=== PATIENT | female | born 1970 | race Caucasian/White ===

== ENCOUNTER 2020-10-18 11:12 | Outpatient (CLI) | payer OTHER, SELFPAY ==
[2020-10-18 11:46] LABS: Basophils Percent Auto 0.8 % (0.2-1.2); Eosinophils Absolute Auto 0.1 K/mm3 (0-0.3); Hematocrit 44.3 % (37.0-47.0); Hemoglobin 14.9 g/dL (12.0-15.0); Immature Granulocyte Absolute 0.01 K/mm3 (0.00-0.031); Immature Granulocyte Percent A 0.2 % (0-0.5); Lymphocytes Absolute Auto 1.52 K/mm3 (0.9-3.2); Mean Corpuscular HGB Conc 33.6 g/dl (32-36); Mean Corpuscular Hemoglobin 30.1 pg (26-34); Mean Corpuscular Volume 89.5 fl (80-100); Monocytes Absolute Auto 0.4 K/mm3 (0.1-0.6); Monocytes Percent Auto 7.8 % (2.6-8.5); Neutrophils Absolute Auto 2.9 K/mm3 (1.3-6.7); Neutrophils Percent Auto 58.2 % (45.5-73.1); Platelet Count Result 203 k/mm3 (150-375); Red Blood Count 4.95 M/mm3 (4.2-5.4); Red Cell Distribution Width 12.9 % (11.5-14.5); White Blood Count 4.9 K/mm3 (4.5-10.0)
[2020-10-18 11:55] LABS: Alanine Aminotransferase 29 U/L (4-35); Albumin Level 4.3 g/dL (3.5-5.1); Alkaline Phosphatase 76 U/L (38-126); Anion Gap 7 mmol/L (8-16); Aspartate Amino Transferase 29 U/L (14-36); Bilirubin,Total 0.6 mg/dL (0.2-1.3); Blood Urea Nitrogen 13 mg/dL (7-17); Calcium 9.5 mg/dL (8.4-10.2); Carbon Dioxide 28 mmol/L (22-30); Chloride 105 mmol/L (98-107); Cholesterol 249 mg/dL (0-200); Estimated Glomerular Filt Rate > 60; Glucose 137 mg/dL (65-105); HDL Direct 44 mg/dL; Hemoglobin A1C 7.5 % (<5.7); Potassium 4.7 mmol/L (3.4-5.0); Sodium 140 mmol/L (137-145); Triglycerides 99 mg/dL (<150); Uric Acid 3.5 mg/dL (2.5-7.5)
[2020-10-18 12:07] LABS: LDL Cholesterol Direct 202 mg/dL
[2020-10-18 12:30] LABS: Creatinine Urine 105.8 mg/dL
[2020-10-18 13:08] LABS: MALB Creatinine Ratio < 5.7 mg/g (0-30); Microalbumin Urine Random < 6.0 mg/L (0-16.7)
[2020-10-22 10:27] LABS: Vitamin D 1,25 (OH)2 Total 31 pg/mL (18-72); Vitamin D2 1,25 (OH)2 <8 pg/mL; Vitamin D3 1,25 (OH)2 31 pg/mL
== END 2020-10-18 11:13 | disposition home or self-care (01) ==
LOC: ANHLAB 11:14
PROVIDERS: PCP Family Medicine; Visit Provider Family Medicine
DX: E11.9 Type 2 diabetes mellitus without complications (principal); E79.0 Hyperuricemia without signs of inflammatory arthritis and tophaceous disease; E78.2 Mixed hyperlipidemia; E55.9 Vitamin D deficiency, unspecified; I10 Essential (primary) hypertension
CPT/HCPCS: 36415; 80053; 80061; 82043; 82652; 83036; 84443; 84550; 85025

== ENCOUNTER 2021-04-23 08:16 | Outpatient (CLI) | payer OTHER, SELFPAY ==
[2021-04-23 08:50] LABS: Basophils Absolute Auto 0.1 K/mm3 (0.0-0.1); Basophils Percent Auto 0.9 % (0.2-1.2); Eosinophils Absolute Auto 0.1 K/mm3 (0-0.3); Eosinophils Percent Auto 2.2 % (0-4.4); Hematocrit 42.6 % (37.0-47.0); Hemoglobin 13.9 g/dL (12.0-15.0); Immature Granulocyte Absolute 0.02 K/mm3 (0.00-0.031); Immature Granulocyte Percent A 0.3 % (0-0.5); Lymphocytes Absolute Auto 2.16 K/mm3 (0.9-3.2); Mean Corpuscular HGB Conc 32.6 g/dl (32-36); Mean Corpuscular Hemoglobin 29.3 pg (26-34); Mean Corpuscular Volume 89.9 fl (80-100); Mean Platelet Volume 10.4 fl (7.4-10.4); Monocytes Absolute Auto 0.5 K/mm3 (0.1-0.6); Monocytes Percent Auto 8.6 % (2.6-8.5); Platelet Count Result 193 k/mm3 (150-375); Red Blood Count 4.74 M/mm3 (4.2-5.4); Red Cell Distribution Width 13.2 % (11.5-14.5); White Blood Count 5.8 K/mm3 (4.5-10.0)
[2021-04-23 08:58] LABS: Alanine Aminotransferase 23 U/L (4-35); Albumin Level 4.3 g/dL (3.5-5.1); Alkaline Phosphatase 71 U/L (38-126); Anion Gap 9 mmol/L (8-16); Aspartate Amino Transferase 23 U/L (14-36); Bilirubin,Total 0.5 mg/dL (0.2-1.3); Blood Urea Nitrogen 13 mg/dL (7-17); Calcium 9.3 mg/dL (8.4-10.2); Carbon Dioxide 24 mmol/L (22-30); Chloride 107 mmol/L (98-107); Cholesterol 235 mg/dL (0-200); Estimated Glomerular Filt Rate > 60; Glucose 146 mg/dL (65-105); HDL Direct 46 mg/dL; Potassium 3.9 mmol/L (3.4-5.0); Sodium 140 mmol/L (137-145); Triglycerides 106 mg/dL (<150)
[2021-04-23 09:03] LABS: Hemoglobin A1C 7.5 % (<5.7)
[2021-04-23 09:09] LABS: LDL Cholesterol Direct 148 mg/dL
[2021-04-23 10:06] LABS: Creatinine Urine 48.2 mg/dL
[2021-04-23 10:59] LABS: MALB Creatinine Ratio < 12.4 mg/g (0-30); Microalbumin Urine Random < 6.0 mg/L (0-16.7)
== END 2021-04-23 08:17 | disposition home or self-care (01) ==
LOC: ANHLAB 08:19
PROVIDERS: PCP Family Medicine; Visit Provider Family Medicine
DX: E11.9 Type 2 diabetes mellitus without complications (principal); I10 Essential (primary) hypertension; E78.2 Mixed hyperlipidemia; E03.9 Hypothyroidism, unspecified
CPT/HCPCS: 36415; 80053; 80061; 82043; 83036; 84443; 85025

== ENCOUNTER 2021-05-03 09:33 | Outpatient (CLI) | payer OTHER, SELFPAY ==
--- NOTE | ~2021-05-03 | MM_ITS ---
EXAMINATION: MM screening [facility] BI w horacio HISTORY: Screening mammogram TECHNIQUE: Craniocaudal and mediolateral oblique 3-D tomosynthesis images were obtained and synthetic 2-D images were generated. CAD analysis was submitted and interpreted. COMPARISON: 10/24/2017, 10/02/2017, 06/12/2011 BREAST PARENCHYMAL COMPOSITION: There are scattered areas of fibroglandular density. FINDINGS: RIGHT BREAST: There is no evidence of suspicious mass, calcification, or architectural distortion to suggest malignancy. There has been no significant interval change. LEFT BREAST: There is a possible mass in the middle/posterior third of the outer breast 9 cm from the nipple. IMPRESSION: 1. Possible left breast mass. 2. Additional mammographic views and possible breast ultrasound are recommended. BI-RADS Category 0: Incomplete: Needs additional imaging evaluation. Reviewed, dictated and finalized at location A. IMPRESSION: 1. Possible left breast mass. 2. Additional mammographic views and possible breast ultrasound are recommended . BI-RADS Category 0: Incomplete: Needs additional imaging evaluation.
== END 2021-05-03 09:34 | disposition home or self-care (01) ==
PROVIDERS: PCP Family Medicine; Visit Provider Physician Assistant
DX: Z12.31 Encounter for screening mammogram for malignant neoplasm of breast (principal); R92.8 Other abnormal and inconclusive findings on diagnostic imaging of breast
CPT/HCPCS: 77063; 77067

== ENCOUNTER 2021-08-17 11:21 | Outpatient (CLI) | payer OTHER, SELFPAY ==
--- NOTE | ~2021-08-17 | MMUS_ITS ---
EXAMINATION: MM diagnostic lamin LT w horacio, US breast LT limited HISTORY: Possible left breast mass in middle/posterior third of outer breast 9 cm from nipple reporte d on 05/03/2021 screening mammogram examinations TECHNIQUE: Full field and spot ML, MLO and craniocaudal 3-D tomosynthesis images of left breast were performed and synthetic 2-D images were generated. CAD analysis was submitted and interpreted. Upper outer and lower-outer quadrant left breast ultrasound was performed. COMPARISON: 05/03/2021ilateral digital screening mammogram BREAST PARENCHYMAL COMPOSITION: There are scattered areas of fibroglandular density. MAMMOGRAM FINDINGS: No reproducible mass or architectural distortion, malignant calcification, skin t hickening or retraction is detected. ULTRASOUND FINDINGS: No solid mass, cyst or suspicious shadowing of the lateral half of the left twila st is detected. IMPRESSION: 1. No mammographic evidence of malignancy 2. Routine mammographic screening is recommended BI-RADS Category 1: Negative Reviewed, dictated and finalized at location A. IMPRESSION: 1. No mammographic evidence of malignancy 2. Routine mammographic screening is recommended BI-RADS Category 1: Negative
== END 2021-08-17 11:22 | disposition home or self-care (01) ==
PROVIDERS: PCP Family Medicine; Visit Provider Family Medicine
DX: N63.0 Unspecified lump in unspecified breast (principal)
CPT/HCPCS: 76642; 77061; 77065; G0279

== ENCOUNTER 2022-12-17 16:22 | Outpatient (CLI) | payer OTHER, SELFPAY ==
--- NOTE | ~2022-12-17 | XR_ITS ---
XR knee LT 3V 12/17/2022 16:46 Indication: Left knee pain. Multiple falls. Procedure: 3 views left knee Comparison: No prior studies for comparison. Findings: There is moderate tricompartment osteoarthritis of the left knee. No fracture, subluxation or dislocation. No significant joint effusion. No foreign bodies. Impression: 1: Moderate tricompartment osteoarthritis. Reviewed, dictated and finalized at location L. F TRAINER Impression: 1: Moderate tricompartment osteoarthritis.
== END 2022-12-17 16:23 | disposition home or self-care (01) ==
LOC: ANHIMG 16:24
PROVIDERS: PCP Family Medicine; Visit Provider Family Medicine
DX: M25.569 Pain in unspecified knee (principal); M17.12 Unilateral primary osteoarthritis, left knee
CPT/HCPCS: 73562

== ENCOUNTER 2023-02-11 13:52 | Outpatient (RCR) | payer OTHER, SELFPAY ==
--- NOTE | 2023-02-11 14:54 | PTOPEVAL1 ---
Assessment and note entered by Marisela Valdivia, PT Evaluation Information Assessment Status Evaluation Diagnosis L knee OA Onset 02/05/23 Subjective Information Nubia Ramirez reports she will have a left total knee replacement in the near future due to bone on bone deformity and osteoarthritis. Her doctor sent her to PT to have rehabilitation prior to her surgery. She has pain with walking and is limited to walking a 1/2 block due to pain. She also is unable to go up and down stairs unless she pulls with her hands and takes one step at a time . She has pain on the back of the knee along with swelling that limits her ability to bend her knee and her ability to sleep. She notes increased pain and swelling after work in which she has to stand for several hours. Reported Pain Level Pain Score 5: Self Report Assessment PT Clinical Summary Nubia Ramirez presents with left knee pain due to osteoarthritis. 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 She is reporting left knee pain and swelling that is worse with prolonged standing. She is having difficulty walking more than 1/2 block, sleeping, and she is unable to go up and down stairs. She objectively demonstrates moderate deficits in left knee AROM that is impairing her gait, decreased left knee and hip strength with pain elicited during testing, tenderness on the left medial and posterior knee joint line, impaired gait, and impaired balance. She will benefit from skilled PT for left knee ROM, left LE strengthening, balance training, and gait training prior to a left total knee arthroplasty. Plan of Care Interventions Gait Training,Hot Pack/Cold Pack,Intermittent Compression,Manual Therapy,Neuro Re-education, Patient/Caregiver Educati,Therapeutic Activities, Therapeutic Exercise PT Services Indicated Yes Treatment Frequency and 1 time a week for 4 visits Duration These treatments will address the objective and functional deficits as defined above. The patient will be advanced safely and appropriately in order for the patient to progress towards his/her prior level of function. Additional exercises will be introduced and as well as a comprehensive home exercise program upon discharge, if needed, ?to ensure carryover of functional gains achieved in the clinic. This treatment plan has been reviewed and agreement upon by the patient.
--- NOTE | 2023-03-03 17:18 | PTOPDC ---
Assessment and note entered by Yamini Rojas DPT Evaluation Information Assessment Status Evaluation Diagnosis L knee OA Onset 02/05/23 Subjective Information Patient reports she has noticed some improvements in her walking but continues to report that she is limited by pain. She has increased pain with stair navigation. She reports she is calling the MD tomorrow to follow up regarding surgery. Reported Pain Level Pain Score 8: Self Report Assessment PT Clinical Summary Patient has been seen for 4 visits for pre op L knee pain. She made small improvements in L knee ROM and strength but continues to demonstrate deficits. She reports improvement in ambulation but continues to have difficulty with stair navigation. She is independent with HEP and will be discharged at this time. Plan of Care PT Services Indicated No
== END 2023-03-03 17:25 | disposition home or self-care (01) ==
LOC: CHSPT 13:52
PROVIDERS: Visit Provider Orthopaedic Surgery
DX: M17.12 Unilateral primary osteoarthritis, left knee (principal)
CPT/HCPCS: 97016; 97110; 97161; 97530

== ENCOUNTER 2023-07-23 09:59 | Outpatient (CLI) | payer OTHER, SELFPAY ==
[2023-07-23 10:28] LABS: Basophils Absolute Auto 0.1 K/mm3 (0.0-0.1); Eosinophils Absolute Auto 0.2 K/mm3 (0-0.3); Hematocrit 42.9 % (37.0-47.0); Hemoglobin 14.5 g/dL (12.0-15.0); Immature Granulocyte Absolute 0.01 K/mm3 (0.00-0.031); Immature Granulocyte Percent A 0.2 % (0-0.5); Lymphocytes Absolute Auto 1.58 K/mm3 (0.9-3.2); Lymphocytes Percent Auto 31.9 % (18.3-44.2); Mean Corpuscular HGB Conc 33.8 g/dl (32-36); Mean Corpuscular Hemoglobin 30.6 pg (26-34); Mean Corpuscular Volume 90.5 fl (80-100); Mean Platelet Volume 10.4 fl (7.4-10.4); Monocytes Absolute Auto 0.5 K/mm3 (0.1-0.6); Monocytes Percent Auto 9.9 % (2.6-8.5); Neutrophils Absolute Auto 2.6 K/mm3 (1.3-6.7); Platelet Count Result 190 k/mm3 (150-375); Red Blood Count 4.74 M/mm3 (4.2-5.4); Red Cell Distribution Width 12.8 % (11.5-14.5)
[2023-07-23 10:42] LABS: Alanine Aminotransferase 37 U/L (6-35); Albumin Level 4.5 g/dL (3.5-5.1); Alkaline Phosphatase 71 U/L (38-126); Anion Gap 6 mmol/L (8-16); Aspartate Amino Transferase 29 U/L (14-36); Bilirubin,Total 0.8 mg/dL (0.2-1.3); Blood Urea Nitrogen 10 mg/dL (7-17); Calcium 8.8 mg/dL (8.4-10.2); Carbon Dioxide 27 mmol/L (22-30); Chloride 106 mmol/L (98-107); Cholesterol 283 mg/dL (0-200); Estimated Glomerular Filt Rate > 60; Glucose 160 mg/dL (65-110); HDL Direct 37 mg/dL; Potassium 3.8 mmol/L (3.4-5.0); Sodium 139 mmol/L (137-145); Triglycerides 116 mg/dL (<150)
[2023-07-23 10:54] LABS: LDL Cholesterol Direct 196 mg/dL
== END 2023-07-23 10:00 | disposition home or self-care (01) ==
PROVIDERS: PCP Family Medicine; Visit Provider Physician Assistant
DX: E11.9 Type 2 diabetes mellitus without complications (principal); I10 Essential (primary) hypertension; E78.2 Mixed hyperlipidemia
CPT/HCPCS: 36415; 80053; 80061; 83036; 85025

== ENCOUNTER 2023-11-21 10:58 | Outpatient (CLI) | payer OTHER, SELFPAY ==
[2023-11-21 11:45] LABS: Alanine Aminotransferase 27 U/L (6-35); Albumin Level 4.4 g/dL (3.5-5.1); Alkaline Phosphatase 68 U/L (38-126); Anion Gap 11 mmol/L (8-16); Aspartate Amino Transferase 27 U/L (14-36); Bilirubin,Total 0.6 mg/dL (0.2-1.3); Blood Urea Nitrogen 21 mg/dL (7-17); Calcium 9.2 mg/dL (8.4-10.2); Carbon Dioxide 24 mmol/L (22-30); Chloride 104 mmol/L (98-107); Cholesterol 250 mg/dL (0-200); Estimated Glomerular Filt Rate > 60; Glucose 133 mg/dL (65-110); HDL Direct 42 mg/dL; Potassium 4.3 mmol/L (3.4-5.0); Sodium 139 mmol/L (137-145); Triglycerides 81 mg/dL (<150)
[2023-11-21 11:56] LABS: LDL Cholesterol Direct 185 mg/dL
== END 2023-11-21 10:59 | disposition home or self-care (01) ==
LOC: ANHLAB 10:59
PROVIDERS: PCP Family Medicine; Visit Provider Physician Assistant
DX: E11.9 Type 2 diabetes mellitus without complications (principal); E78.2 Mixed hyperlipidemia; I10 Essential (primary) hypertension
CPT/HCPCS: 36415; 80053; 80061; 83036

== ENCOUNTER 2023-12-25 00:13 | Day surgery (SDC) | payer OTHER, SELFPAY ==
[2023-12-02 12:27] VITALS: BMI 32.7
--- NOTE | 2023-12-23 08:15 | SUR.PREOP ---
Patient called regarding upcoming procedure. Voicemail left regarding appointment times.
--- NOTE | 2023-12-24 13:53 | PM.HPGS ---
History of Present Illness History of Present Illness Consent: Risks, benefits, and alternatives have been discussed and questions answered. Patient agrees to proceed with procedure. Chief complaint: neoplasm screening Narrative: Nubia Ramirez is a 53 year old female Referred for colon cancer screening. Review of Systems Review of Systems: All systems reviewed & are unremarkable except as noted in HPI and below PMFSH Past Medical History Medical History Benign essential HTN Depression Diabetes mellitus Mixed hyperlipidemia Surgical History Surgical History History of partial hysterectomy Family History Family History Father Hypertension Family history of elevated blood lipids Family history of diabetes mellitus in first degree relative Mother Acute myocardial infarction Other Diabetes mellitus Social History Social History Social History: Smoking status: Never smoker Second hand tobacco smoke exposure: No Alcohol intake: never Substance use: never Substance use type: does not use Lack of Transportation: No Lack of Food: Never True Current Housing: I Have Housing Concerned About Future Housing: No Difficulty Paying Gas/Electric Bills: No Difficulty Paying for Meds: No Currently Unemployed: No Education: Trade/Vocational Certificate Difficulty w/ Childcare or Family Care: No Living arrangements: with family Occupation/Education: occupation 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 [employer] Gender identity (if verbalized by the patient): Female Sexual Orientation (if Verbalized by the Patient): Straight or Heterosexual Spiritual care concerns: No Meds Home Medications and Allergies Home Medications Medication Instructions Recorded Confirmed Type fluoxetine 20 mg capsule 20 mg PO DAILY #90 caps 11/04/23 12/02/23 Rx rosuvastatin 20 mg tablet 20 mg PO DAILY #90 tabs 11/04/23 12/02/23 Rx semaglutide 0.25 mg or 0.5 mg (2 0.25 mg subcut WEEKLY 11/24/23 12/25/23 History mg/3 mL) subcutaneous pen injector (Ozempic) Allergies Allergy/AdvReac Type Severity Reaction Status Date / Time nickel Allergy Severe ACID Verified 12/25/23 07:00 REACTION TO METAL codeine Allergy Mild hives Verified 12/25/23 07:00 metformin Allergy Unknown Palpitation Verified 12/25/23 07:00 s dulaglutide [From [facility]] AdvReac Intermediate Vomiting Verified 12/25/23 07:00 Exam Const: General: alert Orientation/consciousness: patient oriented x3 Resp: Auscultation: clear to auscultation bilaterally Cardio: Rhythm: regular rhythm GI: GI Palp: Yes Soft to palpation and No Tenderness to palpation present (GI) Neuro: General: patient oriented x3 Assessment and Plan Assessment and plan (1) Colon cancer screening: Code(s): Z12.11 - Encounter for screening for malignant neoplasm of colon Status: Acute Assessment and Plan: Colonoscopy with possible biopsy or polypectomy or cautery or injection of substances.
[2023-12-25 07:02] VITALS: BP 128/87; PULSE 91; RESP 16; TEMP 36.2; O2SAT 100
[2023-12-25] MEDS: LACTATED RINGERS 1,000 ML 150 ML IV CONT (07:20)
[2023-12-25 07:21] LABS: Glucose Point of Care 121 mg/dl (65-105)
--- NOTE | 2023-12-25 07:56 | WPDANESEPPF ---
Anes - Initial Pre Proc Eval Procedure: Operation Date: 12/25/23 08:30 Proposed Procedures p Screening Colonoscopy - Issa Arana MD Date/Time: 12/25/23 07:56 Surgeon: Issa Arana MD Pre Op Diagnosis: neoplasm screening Patient Data Age: 53 Gender: F Height: 1.52 m Weight: 72.6 kg Last Vital Signs Temp 36.2 C L 12/25/23 07:02 Pulse 91 12/25/23 07:02 Resp 16 12/25/23 07:02 BP 128/87 12/25/23 07:02 Pulse Ox 100 12/25/23 07:02 O2 Del Method Room Air 12/25/23 07:02 Allergies Allergy/AdvReac Type Severity Reaction Status Date / Time nickel Allergy Severe ACID Verified 12/25/23 07:00 REACTION TO METAL codeine Allergy Mild hives Verified 12/25/23 07:00 metformin Allergy Unknown Palpitation Verified 12/25/23 07:00 s dulaglutide [From [facility]] AdvReac Intermediate Vomiting Verified 12/25/23 07:00 Home Medications Medication Instructions Recorded Confirmed Type fluoxetine 20 mg capsule 20 mg PO DAILY #90 caps 11/04/23 12/02/23 Rx rosuvastatin 20 mg tablet 20 mg PO DAILY #90 tabs 11/04/23 12/02/23 Rx semaglutide 0.25 mg or 0.5 mg (2 0.25 mg subcut WEEKLY 11/24/23 12/25/23 History mg/3 mL) subcutaneous pen injector (Ozempic) Laboratory Tests 12/25/23 07:15 POC Capillary Glucose 121 H mg/dl (65-105) Patient hx anesthesia problems: none Family hx anesthesia problems: none Results Review: All pre-operative results and documents have been reviewed as part of the pre-operative evaluation. [facility]LY [facility], [facility] Past Medical History Medical History Benign essential HTN Depression Diabetes mellitus Mixed hyperlipidemia Surgical History Surgical History History of partial hysterectomy Family History Family History Father Hypertension Family history of elevated blood lipids Family history of diabetes mellitus in first degree relative Mother Acute myocardial infarction Other Diabetes mellitus Social History Social History Social History: Smoking status: Never smoker Second hand tobacco smoke exposure: No Alcohol intake: never Substance use: never Substance use type: does not use Lack of Transportation: No Lack of Food: Never True Current Housing: I Have Housing Concerned About Future Housing: No Difficulty Paying Gas/Electric Bills: No Difficulty Paying for Meds: No Currently Unemployed: No Education: Trade/Vocational Certificate Difficulty w/ Childcare or Family Care: No Living arrangements: with family Occupation/Education: occupation 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 Gender identity (if verbalized by the patient): Female Sexual Orientation (if Verbalized by the Patient): Straight or Heterosexual Spiritual care concerns: No Anes - Eval Final PreProcedure Day of Procedure 12/25/23 07:56 Patient weight: obese Heart: regular rate and rhythm Lungs: clear to auscultation Airway: Mallampati scale class II Neurological: alert and oriented Last oral intake: >/= 8 hours ASA classification: III Emergent: no Anesthetic plan: proceed Anesthesia type and monitoring: general GIVS and standard monitoring Results Review: All pre-operative results and documents have been reviewed as part of the pre-operative evaluation. Informed Consent: The patient's anesthetic plan and its attendant risks and benefits were discussed with the patient/family/POA. Questions were solicited and answers provided to the satisfaction of the patient/family/POA.
[2023-12-25 09:12] VITALS: BP 96/60; PULSE 78; RESP 15; O2SAT 96
[2023-12-25 09:22] VITALS: BP 112/80; PULSE 73; RESP 18; O2SAT 100
[2023-12-25 09:32] VITALS: BP 109/79; PULSE 74; RESP 16; O2SAT 100
== END 2023-12-25 09:34 | disposition home or self-care (01) ==
PROVIDERS: PCP Family Medicine; Visit Provider Internal Medicine Gastroenterology
PROC: 0DJD8ZZ Inspection of Lower Intestinal Tract, Via Natural or Artificial Opening Endoscopic (ICD-10-PCS; CPT 45378; principal; 2023-12-25 08:30)
DX: Z12.11 Encounter for screening for malignant neoplasm of colon (principal); I10 Essential (primary) hypertension; E11.9 Type 2 diabetes mellitus without complications; E78.2 Mixed hyperlipidemia
CPT/HCPCS: 45378; 82948; J2704; J7120

== ENCOUNTER 2024-03-30 10:58 | Outpatient (CLI) | payer OTHER, SELFPAY ==
--- NOTE | ~2024-03-30 | CT_ITS ---
EXAMINATION: CT LE LT wo con DATE: 03/30/2024 11:39 INDICATION: Unilateral primary osteoarthritis, left knee. TECHNIQUE: Computed tomography (CT) of the left lower limb was performed without intravenous contrast . Automated exposure control and iterative reconstruction technique were employed. The dose-length pr oduct was 1839.64 mGy-cm. COMPARISON: Left knee radiographs 03/10/2024 FINDINGS: There is mild left hip osteoarthritis. Left knee demonstrates severe osteoarthritis of the medial and patellofemoral compartments and mild osteoarthritis of the lateral compartment. There is a small knee joint effusion. There is a small Olguin's cyst. Varicose veins are noted. IMPRESSION: 1. Severe left knee osteoarthritis. 2. Small left knee joint effusion. 3. Small left-sided Olguin's cyst. 4. Mild left hip osteoarthritis. Reviewed, dictated and finalized at location A.
--- NOTE | 2024-03-30 11:48 | ECG_ITS ---
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 Measurements Intervals [place] Rate: 55 P: 18 WV: 165 QRS: -10 QRSD: 104 T: -1 QT: 423 QTc: 405 Interpretive Statements SINUS BRADYCARDIA LOW QRS VOLTAGE IN PRECORDIAL LEADS [QRS DEFLECTION < 1.0 mV IN CHEST LEADS] POSSIBLE ANTERIOR MYOCARDIAL INFARCTION , PROBABLY OLD [30 ms Q WAVE IN V3/V4, OR R < 0.2 mV IN V4] No previous ECG available for comparison Electronically Signed On 03-30-2024 14:21:46 CDT by Camryn Dawson M.D.
[2024-03-30 12:47] LABS: Hematocrit 44.3 % (37.0-47.0); Hemoglobin 14.4 g/dL (12.0-15.0)
[2024-03-30 12:59] LABS: Albumin Level 4.4 g/dL (3.5-5.1); Estimated Glomerular Filt Rate > 60; Glucose 150 mg/dL (65-110)
[2024-03-30 13:12] LABS: Hemoglobin A1C 7.4 % (<5.7)
== END 2024-03-30 10:59 | disposition home or self-care (01) ==
PROVIDERS: PCP Family Medicine; Visit Provider Orthopaedic Surgery
DX: Z01.818 Encounter for other preprocedural examination (principal); M17.12 Unilateral primary osteoarthritis, left knee; E11.9 Type 2 diabetes mellitus without complications; I10 Essential (primary) hypertension
CPT/HCPCS: 36415; 73700; 82040; 82565; 82947; 83036; 85014; 85018; 93005

== ENCOUNTER 2024-05-12 09:42 | Outpatient (CLI) | payer OTHER, SELFPAY ==
[2024-05-12 11:11] LABS: Basophils Absolute Auto 0.1 K/mm3 (0.0-0.1); Basophils Percent Auto 1.2 % (0.2-1.2); Eosinophils Absolute Auto 0.7 K/mm3 (0-0.3); Eosinophils Percent Auto 10.4 % (0-4.4); Hematocrit 43.7 % (37.0-47.0); Hemoglobin 14.3 g/dL (12.0-15.0); Immature Granulocyte Absolute 0.02 K/mm3 (0.00-0.031); Immature Granulocyte Percent A 0.3 % (0-0.5); Lymphocytes Absolute Auto 2.08 K/mm3 (0.9-3.2); Lymphocytes Percent Auto 31.5 % (18.3-44.2); Mean Corpuscular HGB Conc 32.7 g/dl (32-36); Mean Corpuscular Hemoglobin 29.8 pg (26-34); Mean Platelet Volume 10.4 fl (7.4-10.4); Monocytes Absolute Auto 0.5 K/mm3 (0.1-0.6); Monocytes Percent Auto 7.4 % (2.6-8.5); Neutrophils Absolute Auto 3.3 K/mm3 (1.3-6.7); Neutrophils Percent Auto 49.2 % (45.5-73.1); Platelet Count Result 205 k/mm3 (150-375); Red Cell Distribution Width 12.5 % (11.5-14.5); White Blood Count 6.6 K/mm3 (4.5-10.0)
[2024-05-12 11:21] LABS: Anion Gap 11 mmol/L (4-12); Blood Urea Nitrogen 12 mg/dL (7-17); Carbon Dioxide 25 mmol/L (22-30); Chloride 103 mmol/L (98-107); Estimated Glomerular Filt Rate > 60; Glucose 146 mg/dL (65-110); Potassium 4.1 mmol/L (3.4-5.0); Sodium 139 mmol/L (137-145); Urine Cotinine NEGATIVE
[2024-05-12 12:23] LABS: MRSA (PCR) NOT DETECTED (NOT DETECTE)
== END 2024-05-12 09:43 | disposition home or self-care (01) ==
LOC: ANHSURGERY 09:47
PROVIDERS: Anesthesiology; PCP Family Medicine; Visit Provider Orthopaedic Surgery
DX: M17.12 Unilateral primary osteoarthritis, left knee (principal); E11.9 Type 2 diabetes mellitus without complications
CPT/HCPCS: 36415; 80048; 80307; 85025; 87641

== ENCOUNTER 2024-05-27 01:22 | Day surgery (SDC) | payer OTHER, SELFPAY ==
[2024-05-12 09:47] VITALS: BP 126/81; PULSE 68; RESP 16; TEMP 36.6; O2SAT 100; BMI 33.7
--- NOTE | 2024-05-12 09:48 | PC.NURSE ---
Report to the Outpatient Waiting Room, entrance under the green pavilion located off [facility], at time ___08:00AM____ on date ___05/27/24____. Planned Procedure Time: __10:00AM . Time changes happen often and if your time is changed the preop area will call you the afternoon before. - You and your visitor will be asked to self-screen and do not enter if you have any COVID symptoms. - A mask is optional within the hospital at this time. Patients may have clear liquids (water, carbonated beverages, clear teas, apple juice) until 3 hours prior to surgery with a maximum of 20 ounces. - No food from midnight until time of surgery Take the following medications with a SIP of water the morning of surgery: FLUOXETINE DO NOT STOP ANY OF YOUR OTHER PRESCRIPTION MEDICATIONS PRIOR TO SURGERY ?EXCEPT THE FOLLOWING Medications to discontinue per physician HOLD ASA 7 DAYS PRIOR TO SURGERY Date to take last dose___05/19/24 Please no make-up, nail belarusian, hairspray, perfume, deodorant, or body powder the day of surgery. No jewelry (including any body piercings) or valuables the day of surgery, leave them at home. Please take a shower or bath the night before, or the morning of, surgery with an antibacterial soap. Wear comfortable, loose fitting clothing. Children are encouraged to wear pajamas. - Jewelry must be removed prior to entering the operating room. Rings and piercings that are not removed may be cut off. - The hospital will not accept responsibility for valuables. - Please leave all valuables, including medications, at home the day of surgery. If you are going home after surgery, a licensed mule driver must drive you home. - NO public transportation without another adult if you receive anesthesia. - We recommend that an adult stay with you for 24 hours following discharge. - We also recommend that you do not drive, make important decision, drink alcoholic beverages, or take any drugs that were not prescribed by your health care provider for at least 24 hours after your discharge time. Follow any additional instructions given to you from your surgeon. If you or anyone in your household have experienced Covid symptoms in the past week, please notify your surgeon or the nurse liaison at the phone number below for possible testing. Telephone instructions given to ___PATIENT and asked if any additional questions and then verbalized understanding. Patient advised to call surgeon office or pre surgery nurse liaison [phone] if any additional questions.
[2024-05-27] VITALS (8 sets, daily range): BP systolic 126–146; BP diastolic 68–89; PULSE 89–100; RESP 12–16; TEMP 36.4; O2SAT 92–100
--- NOTE | ~2024-05-27 | XR_ITS ---
[id number] Ordering provider: Otoniel Faye MD History: . LEFT CUSTOM TKA, POST-OP . Comparison: None. FINDINGS: BONES: No acute fracture or dislocation. JOINT SPACES: Total knee arthroplasty. SOFT TISSUES: Postoperative changes. IMPRESSION: No acute osseous abnormality left knee. Total knee arthroplasty. Reviewed, dictated and finalized at location A.
[2024-05-27 08:40] LABS: Glucose Point of Care 160 mg/dl (65-105)
[2024-05-27] MEDS: ACETAMINOPHEN 500 MG TABLET 1000 MG PO (09:00)
[2024-05-27] MEDS: TRANEXAMIC ACID 1,000MG/ISO100 1,000 MG/100 ML BAG 200 MG IVPB (09:00)
[2024-05-27] MEDS: LACTATED RINGERS 1,000 ML 30 ML IV CONT ×2 (09:00→12:53)
--- NOTE | 2024-05-27 09:05 | WPDANESEPPF ---
Anes - Initial Pre Proc Eval Procedure: Operation Date: 05/27/24 10:00 Proposed Procedures p Left Custom Total Knee Arthroplasty - Otoniel Faye MD Date/Time: 05/27/24 09:05 Surgeon: Otoniel Faye MD Pre Op Diagnosis: primary oa left knee Patient Data Age: 53 Gender: F Height: 1.5 m Weight: 75.9 kg Last Vital Signs Temp 36.6 C 05/12/24 09:47 Pulse 68 05/12/24 09:47 Resp 16 05/12/24 09:47 BP 126/81 05/12/24 09:47 Pulse Ox 100 05/12/24 09:47 O2 Del Method Room Air 05/12/24 09:47 Allergies Allergy/AdvReac Type Severity Reaction Status Date / Time nickel Allergy Severe ACID Verified 05/12/24 09:53 REACTION TO METAL , rash codeine Allergy Mild hives Verified 05/12/24 09:53 dulaglutide [From [facility]] AdvReac Intermediate Vomiting Verified 05/12/24 09:53 metformin AdvReac Unknown Palpitation Verified 05/12/24 09:53 s Home Medications Medication Instructions Recorded Confirmed Type rosuvastatin 20 mg tablet 20 mg PO DAILY #90 tabs 11/04/23 05/12/24 Rx fluoxetine 20 mg capsule 20 mg PO DAILY #90 caps 04/09/24 05/12/24 Rx semaglutide 0.25 mg or 0.5 mg (2 0.25 mg (0.368 mL) subcut WEEKLY 04/09/24 05/12/24 Rx mg/3 mL) subcutaneous pen injector #3 mL (Ozempic) aspirin 81 mg tablet,delayed 81 mg PO DAILY 05/12/24 05/12/24 History release cephalexin 500 mg capsule 500 mg PO QID 05/12/24 05/12/24 History gabapentin 100 mg capsule 100 mg PO HS 05/12/24 05/12/24 History (Neurontin) aspirin 81 mg tablet,delayed 81 mg PO BID 14 days #28 tabs 05/27/24 Rx release cephalexin 500 mg capsule 500 mg PO BID 3 days #5 caps 05/27/24 Rx meloxicam 15 mg tablet 15 mg PO DAILY #30 tabs 05/27/24 Rx oxycodone-acetaminophen 5 mg-325 1 - 2 tablet PO Q4-6H PRN pain #30 05/27/24 Rx mg tablet tabs prednisone 5 mg tablet 5 mg PO DAILY 3 weeks #21 tabs 05/27/24 Rx Laboratory Tests 05/27/24 08:38 POC Capillary Glucose 160 H mg/dl (65-105) Patient hx anesthesia problems: none Family hx anesthesia problems: none Results Review: All pre-operative results and documents have been reviewed as part of the pre-operative evaluation. [facility] Past Medical History Medical History Benign essential HTN Depression Diabetes mellitus Mixed hyperlipidemia Surgical History Surgical History History of partial hysterectomy Family History Family History Father Hypertension Family history of elevated blood lipids Family history of diabetes mellitus in first degree relative Mother Acute myocardial infarction Other Diabetes mellitus Social History Social History Social History: Smoking status: Never smoker Second hand tobacco smoke exposure: No Alcohol intake: current Substance use: never Substance use type: does not use Lack of Transportation: No Lack of Food: Never True Current Housing: I Have Housing Concerned About Future Housing: No Difficulty Paying Gas/Electric Bills: No Difficulty Paying for Meds: No Currently Unemployed: No Education: Trade/Vocational Certificate Difficulty w/ Childcare or Family Care: No Living arrangements: with family Occupation/Education: occupation 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
--- NOTE | 2024-05-27 09:38 | WPDANESPNB ---
Anes - Peripheral Nerve Block Date/Time: 05/27/24 09:38 I have discussed with the patient/family/POA the placement of a peripheral nerve block for post-operative pain management, including associated risks, benefits, complications, and side effects. Alternative methods of post-operative analgesia were detailed. Questions were solicited and answers provided to the satisfaction of the patient/family/POA. Time-Out: A pre-procedural Time-Out was completed immediately before starting the procedure and confirmed: Patient Identification, Site, Procedure, Patient Position and the Availability of Requisite Equipment. Clinical Indications: Acute post-operative pain management requested by the operative surgeon. Nerve Block Insertion Note Anes-nerve block: adductor canal left Patient position: supine Skin prep: chlorhexidine Needle: 22 gauge, stimulating, insulated echogenic needle. Needle length: 80 mm Technique: ultrasound Injectate: bupivacaine 0.5% with epi 5 mcg/ml (30cc - no epi) Observations: tolerated well Complications: none Procedure start time:: 1006 Procedure end time:: 100
--- NOTE | 2024-05-27 10:11 | WPDHPUPDATE1 ---
History and Physical Update Update Date/Time: 05/27/24 10:11 History and Physical has been reviewed, including an updated exam of the patient. There are NO changes in the patient's condition. Risks, benefits, and alternatives have been discussed and questions answered. Patient agrees to proceed with procedure.
[2024-05-27] MEDS: ceFAZolin 2 GM/D5W 50 ML 2 GM/50 ML BAG IVPB (10:25)
[2024-05-27] MEDS: SODIUM CHLORIDE 0.9% IV 38.7 ML, ROPivacaine HCL 1% 200 MG, KETOROLAC INJ (*BKC) 15 MG,... INFILTRATE (10:55)
[2024-05-27] MEDS: fentaNYL CITRATE INJ (*CRX) 100 MCG/2 ML VIAL 25 MCG IV PUSH ×6 (13:00→13:25)
--- NOTE | 2024-05-27 13:39 | P.OP_ITS ---
Procedure Note - Detailed Date of Procedure 05/27/24 Pre-op Diagnosis Severe left knee osteoarthritis. Post-op Diagnosis Same Procedure Performed Total knee arthroplasty, left. Surgeon Otoniel Faye MD [employer] Steward/Stewardess Sharyn Khanna PA-C Anesthesia General and Regional (Subsartorial block.) Findings Custom implants with optimal fit. Significant patellofemoral dysplasia. Small bony stature. Good bone quality. Slight PCL release performed. Description of Procedure Preoperative antibiotics were given. The limb was prepped and draped in the usual sterile fashion with a well-padded tourniquet high on the thigh. The limb was exsanguinated and the tourniquet inflated to 300 mmHg, during exposure and cementation. A longitudinal incision was created just medial to the patella. A trivector approach to the knee was performed. Arthrotomy was taken down through the joint capsule. No significant releases were initially taken. The femur was exposed and the F1 jig was applied. The coring tool was used to remove the cartilage for the F2 jig to sit flush with the bone. The jig was pinned and the distal cut carefully taken. Caliper measurements confirmed appropriate bony resections according to the preoperative templated plan. The F4 cutting jig for the femur was applied, at the standard rotation. The AP and anterior chamfer cuts were taken. The F5 jig was applied and the posterior chamfer cuts were taken. The tibia was prepared using the T1 jig, after removing cartilage for the jig contact points. Proper alignment was checked with the alignment melissa. The tibia was cut using the T1u guide. Gap balancing was performed. Gap measurements were taken and the knee was trialed. Excellent alignment and soft tissue balancing was confirmed. The posterior cruciate ligament was recessed along the proximal tibia. The patella was cut for resurfacing. Three lug holes were drilled. Meniscal remnants were removed. The trial components were assembled. Excellent range of motion and proper soft tissue balancing were confirmed throughout the full range of motion. Patellar tracking was excellent. The knee was copiously irrigated periodically throughout the procedure. The real implants were cemented into position. Excess cement was carefully removed. The wound was closed in layers with interrupted #1 Vicryl suture, 2-0 strata fix suture, 0 strata fix suture, 2-0 strata fix suture. Steri-Strips placed on the skin with the knee flexed. Sterile bulky dressing applied. The patient was brought to the recovery room in stable condition. There were no complications. Physician medical assistant internal medicine, Sharyn Khanna PA-C, required for surgery; including patient positioning, draping, tissue retraction, maintaining instrument position, cement removal, wound closure, and dressing placement. Implants Conformis Custom total knee arthroplasty. Cemented. Cruciate retaining. 7C insert. 32 mm oval patella. Estimated Blood Loss 200 Drains No Complications No immediate complications Condition Stable Disposition PACU [facility] Billing Surgery - Charge Forward: Surgery Billing
--- NOTE | 2024-05-27 14:08 | SUR.PHASEII ---
PHYSICAL THERAPISTS HERE TO WORK WITH PATIENT. LUNCH DIET ORDERED.
--- NOTE | 2024-05-27 14:27 | SUR.PHASEII ---
PHYSICAL THERAPY DONE. PATIENT NOW EATING LUNCH. AWAITING OCCUPATIONAL THERAPY.
--- NOTE | 2024-05-27 15:02 | SUR.PHASEII ---
PATIENT FINISHED WORKING WITH OCCUPATIONAL THERAPIST.
[2024-05-27] MEDS: ONDANSETRON INJ 4 MG/2 ML VIAL IV PUSH (15:16)
[2024-05-27] MEDS: oxyCODONE HCL (*CRX) 5 MG TAB IR PO (15:17)
== END 2024-05-27 15:40 | disposition home or self-care (01) ==
PROVIDERS: PCP Family Medicine; Visit Provider Orthopaedic Surgery
PROC: (CPT 27447; principal; 2024-05-27 10:00)
DX: M17.12 Unilateral primary osteoarthritis, left knee (principal); I10 Essential (primary) hypertension; E11.9 Type 2 diabetes mellitus without complications; E78.2 Mixed hyperlipidemia; F32.A Depression, unspecified; E66.9 Obesity, unspecified; Z68.33 Body mass index [BMI] 33.0-33.9, adult; G89.18 Other acute postprocedural pain; Z79.85 Long-term (current) use of injectable non-insulin antidiabetic drugs; Z79.82 Long term (current) use of aspirin; Z79.891 Long term (current) use of opiate analgesic; Z79.52 Long term (current) use of systemic steroids; Z98.890 Other specified postprocedural states; Z82.49 Family history of ischemic heart disease and other diseases of the circulatory system
CPT/HCPCS: 64447; 27447; 36415; 73560; 82948; 86850; 86900; 86901; 97110; 97161; 97165; A9270; C1713; C1776; J0171; J0690; J1170; J1885; J2250; J2405; J2704; J2795; J3010; J7120

== ENCOUNTER 2024-06-22 08:52 | Outpatient (RCR) | payer OTHER, SELFPAY ==
--- NOTE | 2024-06-22 08:51 | OPREHPOC ---
Outpatient Therapy Plan of Care This is a Multidisciplinary Plan of Care that may contain components documented by all disciplines (PT, OT, and ST.) PT Problem 1 PT Problem #1 Knowledge Deficit PT Goal 1 Goal / Goal Update 1. independent and compliant with HEP Target Visit 6 PT Problem 2 PT Problem #2 Impaired Range of Motion PT Goal 1 Goal / Goal Update 1. 0-120 degrees active L knee rom Target Visit 12 PT Problem 3 PT Problem #3 Impaired Strength PT Goal 1 Goal / Goal Update 1. 4+/5 or better L hip flex 2. 5/5 L knee strength Target Visit 12 PT Problem 4 PT Problem #4 Impaired Functional Mobil PT Goal 1 Goal / Goal Update 1. patient to display equal LE posture in standing 2. patient to ambulate with reciprocal gait mechanics and equal step/stride length 3. patient to ambulate up and down steps with reciprocal mechanics with 1 hand rail or less 4. LEFS to display 20% or less functional deficits Target Visit 12
--- NOTE | 2024-06-22 08:51 | PTOPEVAL1 ---
Assessment and note entered by JT File, PT Evaluation Information Assessment Status Evaluation Diagnosis L TKA ICD-10 Condition Codes (PT) Z47.1 Onset 05/27/24 Subjective Information patient reports she had a L TKA on 05/27/24. she reports she has been doing her own therapy since. she reports the surgeon wants her to come to therapy. she reports she has been bending the knee , walking, and moving without much issue. she reports she does not notice much issues with the knee at all. she reports she only has a little soreness on the L knee. she reports she is off work currently. 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 she reports she is on her feet all day at work. she reports she plans to return to work in mid to late June. Reported Pain Level Pain Score 0: Self Report Assessment PT Clinical Summary mrs. payne is a 53 yo woman who presents to skilled PT services about 3-4 weeks post op L TKA. she reports no pain in the L knee, but displays decreased strength, decreased rom, and abnormal gait mechanics. she would benefit from continued skilled PT to address her objective/functional deficits and improve her functional activity performance/quality of life and return to prior level activities. Plan of Care Interventions Gait Training,Hot Pack/Cold Pack,Manual Therapy, Neuro Re-education,Patient/Caregiver Educati, Therapeutic Activities,Therapeutic Exercise PT Services Indicated Yes Treatment Frequency and 2x weekly for 12 visits Duration These treatments will address the objective and functional deficits as defined above. The patient will be advanced safely and appropriately in order for the patient to progress towards his/her prior level of function. Additional exercises will be introduced and as well as a comprehensive home exercise program upon discharge, if needed, ?to ensure carryover of functional gains achieved in the clinic. This treatment plan has been reviewed and agreement upon by the patient.
--- NOTE | 2024-08-18 06:33 | OPREHPOC ---
Outpatient Therapy Plan of Care This is a Multidisciplinary Plan of Care that may contain components documented by all disciplines (PT, OT, and ST.) PT Problem 1 PT Problem #1 Knowledge Deficit PT Goal 1 Goal / Goal Update 1. independent and compliant with HEP Target Visit 6 Progress Met PT Problem 2 PT Problem #2 Impaired Range of Motion PT Goal 1 Goal / Goal Update 1. 0-120 degrees active L knee rom Target Visit 12 Progress Not Met PT Problem 3 PT Problem #3 Impaired Strength PT Goal 1 Goal / Goal Update 1. 4+/5 or better L hip flex 2. 5/5 L knee strength Target Visit 12 Progress Met PT Problem 4 PT Problem #4 Impaired Functional Mobil PT Goal 1 Goal / Goal Update 1. patient to display equal LE posture in standing . met 2. patient to ambulate with reciprocal gait mechanics and equal step/stride length. met 3. patient to ambulate up and down steps with reciprocal mechanics with 1 hand rail or less. met 4. LEFS to display 20% or less functional deficits . met Target Visit 12 Progress Met
--- NOTE | 2024-08-18 06:33 | PTOPDC ---
Assessment and note entered by JT File, PT Evaluation Information Assessment Status Discharge Diagnosis L TKA ICD-10 Condition Codes (PT) Z47.1 Onset 05/27/24 Subjective Information patient reports she is ready to be DC'd from skilled PT. she reports the knee is strong, and she is walking without any issues. Assessment PT Clinical Summary mrs. payne presents to skilled PT services for her 12th skilled PT visit today. she has made progress in L knee strength, rom, and ambulation mechanics. she has met all goals for skilled PT as of this date, and wishes to be DC'd. she will continue with HEP independent at home. Plan of Care PT Services Indicated Yes
== END 2024-08-11 16:45 | disposition home or self-care (01) ==
LOC: CHSPT 08:52
PROVIDERS: Visit Provider Orthopaedic Surgery
DX: Z47.1 Aftercare following joint replacement surgery (principal); Z96.652 Presence of left artificial knee joint
CPT/HCPCS: 97014; 97110; 97161; 97530; G0283

== ENCOUNTER 2024-07-13 11:14 | Outpatient (CLI) | payer OTHER, SELFPAY ==
--- NOTE | ~2024-07-13 | XR_ITS ---
XR knee LT 3V Ordering provider: Otoniel Faye MD History: . Z96.652 - Presence of left artificial knee joint x post6 wks . Comparison: March 10, 2024 FINDINGS: BONES: No acute fracture or dislocation. JOINT SPACES: Total knee arthroplasty. SOFT TISSUES: Normal. IMPRESSION: No acute osseous abnormality left knee. Total knee arthroplasty. Reviewed, dictated and finalized at location A.
== END 2024-07-13 11:15 | disposition home or self-care (01) ==
LOC: ANHIMG 11:16
PROVIDERS: Visit Provider Orthopaedic Surgery
DX: Z96.652 Presence of left artificial knee joint (principal)
CPT/HCPCS: 73562

== ENCOUNTER 2025-07-16 12:30 | Outpatient (CLI) | payer OTHER, SELFPAY ==
--- OUTSIDE RECORDS SUMMARY | 2025-07-16 12:35 | XMS_ITS | Clinical Summary ---
Author Organization [facility] [place] [address] Address [address] [place] [address] Care Team Providers Care Senior [employer] Network Engineer Name Role Phone Gillian Hussein MD Primary Care Provider Allergies Active Allergy Reactions Criticality Noted Date Comments Codeine Hives Medium Metformin Palpitations Low 12/22/2023 Nickel Other (See comments) Low 12/22/2023 Acid reaction to metal Dulaglutide Vomiting Low 12/22/2023 Medications FLUoxetine (PROzac) 20 mg tablet take 1 tablet by oral route every day in the morning 0 0 6 Active losartan-hydroC HLOROthiazide (HYZAAR) 100-12.5 mg per tablet take 1 tablet by oral route every day 0 0 6 Active Additional Information Patient not taking.Reported on 12/22/2023 empagliflozin (JARDIANCE) 25 mg tablet 1 tablet (25 mg total) daily Active rosuvastatin (CRESTOR) 20 mg tablet Take 1 tablet (20 mg total) by mouth daily Active SITagliptin phosphate (JANUVIA) 100 mg tabletIndicatio ns:type 2 diabetes mellitus Take 1 tablet (100 mg total) by mouth daily Active valACYclovir (VALTREX) 1 gram tablet Take 1 tablet (1,000 mg total) by mouth 2 (two) times a day Active semaglutide (OZEMPIC SUBQ) Inject under the skin Active Active Problems Problem Noted Date Diagnosed Date Type 2 diabetes mellitus 10/17/2015 Overview (01/30/2017): DM type 2 with diabetic dyslipidemia Chest pain 06/29/2015 Overview (01/30/2017): Chest pain Adiposity 06/29/2015 Overview (01/30/2017): Obesity Dyslipidemia 06/29/2015 Overview (01/30/2017): Dyslipidemia Ventricular premature beats 06/29/2015 Overview (01/30/2017): PVC's (premature ventricular contractions) Benign hypertension 06/29/2015 Overview (01/30/2017): HTN (hypertension), benign Diabetes mellitus 06/29/2015 Overview (01/30/2017): DM (diabetes mellitus) Family history of coronary artery disease 2014 Overview (01/30/2017): Family history of premature CAD Surgical History Surgery Date Site/Laterality Comments HYSTERECTOMY Medical History Medical History Date Comments Chest pain Hypertension Diabetes mellitus (HCC) Hyperlipidemia Family History Medical History Relation Name Comments Hypertension Father Heart attack Mother Myocardial infa rction; Relation Name Status Comments Father Mother Social History Tobacco Use Types Packs/Day Years Used Date Smoking Tobacco: Never Alcohol Use Standard Drinks/Week Comments No 0 (1 standard drink = 0.6 oz pur e alcohol) Comments Unknown Sex and Gender Information Value Date Recorded Sex Assigned at Not on file Legal Sex 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 Gender Identity Not on file Sexual Orientation Not on file Obstetrics History Last Filed Vital Signs Vital Sign Reading Time Taken Comments Blood Pressure 122/79 01/09/2024 1:24 PM CDT Pulse 67 01/09/2024 1:24 PM CDT Temperature - - Respiratory Rate 16 01/09/2024 1:24 PM CDT Oxygen Saturation 99% 12/22/2023 9:17 AM COMPONENT ENGINEER Inhaled Oxygen Concentration - - Weight 75.8 kg (167 lb) 12/22/2023 9:17 AM COMPONENT ENGINEER Height 152.4 cm (5') 12/22/2023 9:17 AM COMPONENT ENGINEER Body Mass Index 32.61 12/22/2023 9:17 AM COMPONENT ENGINEER Plan of Treatment Health Maintenance Due Date Last Done Comments Albumin Creatinine Ratio, Urine 1968 Breast Cancer Screening-Mammogram 1968 Colon Cancer Screening-Colonoscopy 1968 Depression Screening 1968 Hemoglobin A1C 1968 Hepatitis C Screening 1968 eGFR 1968 Dilated Eye Exam 1968 Foot Exam 1968 DTaP/Tdap/Td Vaccine (1 - Tdap) 1979 Hepatitis B Screening 1986 Regular Well Visit/Exam 18-64 1986 Pneumococcal vaccine <65 (1 of 2 - PCV) 1987 Zoster Vaccine (1 of 2) 2018 Lipid Panel 07/23/2024 07/23/2023 Covid-19 Vaccine ( - 2024- season) 2025 11/19/2021, 04/25/2021, 04/04/2021 Influenza Vaccine (#1) 2025 Procedures Procedure Name Priority Date/Time Associated Diagnosis Comments LIPID PANEL Routine 07/23/2023 7:47 AM CDT from Last 3 Months or Most Recently Relevant to Health Maintenance Results * Lipid panel (07/23/2023 7:47 AM CDT) SCRIBED Cholesterol, Total 283 <200 EXTERNAL LAB SCRIBED HDL 37 >39 EXTERNAL LAB SCRIBED LDL 196 <130 EXTERNAL LAB SCRIBED Triglycerides 116 <150 EXTERNAL LAB Blood us Historical Provider LAB BLOOD ORDERABLES Edit ed Result - Final EXTERNAL LAB from Last 3 Months or Most Recently Relevant to Health Maintenance Insurance [facility] [id number] [facility] [id number] Care Teams Senior Cisco Network Engineer Relationship Specialty Start Date End Date Gillian Hussein MD [address] [facility] [address] [place] [address] PCP - General 06/29/15
[2025-07-16 12:53] LABS: Hematocrit 43.7 % (37.0-47.0); Hemoglobin 14.7 g/dL (12.0-15.0); Immature Granulocyte Percent A 0.2 % (0-0.5); Lymphocytes Absolute Auto 1.67 K/mm3 (0.9-3.2); Mean Corpuscular HGB Conc 33.6 g/dl (32-36); Mean Corpuscular Hemoglobin 29.7 pg (26-34); Mean Corpuscular Volume 88.3 fl (80-100); Nucleated Red Blood Cells Absolute Auto 0.000 K/mm3 (0.0-0.012); Nucleated Red Blood Cells Perc 0.0 % (0.0-0.2); Platelet Count Result 190 k/mm3 (150-375); Red Blood Count 4.95 M/mm3 (4.2-5.4); White Blood Count 5.0 K/mm3 (4.5-10.0)
[2025-07-16 13:14] LABS: Hemoglobin A1C 11.6 % (<5.7)
[2025-07-16 13:19] LABS: Alanine Aminotransferase 29 U/L (6-35); Albumin Level 4.4 g/dL (3.5-5.1); Alkaline Phosphatase 74 U/L (38-126); Anion Gap 7 mmol/L (4-12); Aspartate Amino Transferase 27 U/L (14-36); Bilirubin,Total 0.7 mg/dL (0.2-1.3); Blood Urea Nitrogen 18 mg/dL (7-17); Calcium 9.2 mg/dL (8.4-10.2); Carbon Dioxide 24 mmol/L (22-30); Chloride 105 mmol/L (98-107); Cholesterol 266 mg/dL (0-200); Estimated Glomerular Filt Rate > 60; Glucose 172 mg/dL (65-110); HDL Direct 43 mg/dL; Potassium 4.1 mmol/L (3.4-5.0); Sodium 136 mmol/L (137-145); Total Protein 7.6 g/dL (6.3-8.2); Triglycerides 135 mg/dL (<150)
[2025-07-16 13:39] LABS: MALB Creatinine Ratio 7.4 mg/g (0-30)
== END 2025-07-16 12:31 | disposition home or self-care (01) ==
LOC: ANHIMG 12:33 → ANHLAB 12:35
PROVIDERS: PCP Family Medicine; Visit Provider Student in an Organized Health Care Education/Training Program
DX: E78.5 Hyperlipidemia, unspecified (principal); E11.9 Type 2 diabetes mellitus without complications; I10 Essential (primary) hypertension
CPT/HCPCS: 36415; 80053; 80061; 82043; 83036; 85025